=== PATIENT | male | born 1940 | race Caucasian/White ===

== ENCOUNTER → 2016-04-26 | Outpatient (CLI) | payer OTHER, MEDICARE ==
[2016-04-26 16:40] LABS: BASOPHILS # (AUTO) 0.03 10*3/UL; BASOPHILS % (AUTO) 0.3 % (0-1); EOSINOPHILS % (AUTO) 1.5 % (0-8); HEMATOCRIT 45.4 % (42.0-52.0); IMM GRAN % (AUTO) 0.3 % (0-5); IMM GRAN# (AUTO) 0.03 10*3/UL; LYMPHOCYTES # (AUTO) 4.75 10*3/uL; LYMPHOCYTES % (AUTO) 45.2 % (10-50); MEAN CORPUSCULAR HEMOGLOBIN 31.2 PG (27-31); MEAN PLATELET VOLUME 10.7 FL (7.4-12.2); MONOCYTES # (AUTO) 1.03 10*3/UL (0.3-0.8); MONOCYTES % (AUTO) 9.8 % (5-15); NEUTROPHILS # (AUTO) 4.51 10*3/UL; NEUTROPHILS % (AUTO) 42.9 % (50-80); RDW COEFFICIENT OF VARIATION 14.9 % (11.5-14.5); RED BLOOD COUNT 4.81 10^6/uL (4.70-6.10); WHITE BLOOD COUNT 10.51 10^3/uL (4.8-10.8)
[2016-04-26 16:42] LABS: PLATELET MORPHOLOGY COMMENT NORMAL MORPHOLOGY (NORM)
[2016-04-26 16:44] LABS: LDL CHOLESTEROL,CALCULATED 70.2 mg/dL
[2016-04-26 17:16] LABS: BILIRUBIN,TOTAL 0.9 mg/dL (0.3-1.2); BUN/CREATININE RATIO 23.63 (6-20); CALCIUM 9.9 mg/dL (8.7-10.7); CREATININE 1.1 mg/dL (0.70-1.50); POTASSIUM 5.6 meq/L (3.8-5.2); TOTAL PROTEIN 7.7 g/dL (6.1-8.0)
[2016-04-28 13:37] LABS: LAMOTRIGINE (LAMICTAL) 14.7 mcg/mL (2.5 - 15.0)
== END ==
LOC: LAB 09:07
PROVIDERS: ATTEND Internal Medicine
DX: G40.909 Epilepsy, unspecified, not intractable, without status epilepticus (principal); E03.9 Hypothyroidism, unspecified; I10 Essential (primary) hypertension; E78.5 Hyperlipidemia, unspecified; G47.34 Idiopathic sleep related nonobstructive alveolar hypoventilation; Z79.899 Other long term (current) drug therapy
CPT/HCPCS: 80053; 80061; 80175; 80177; 84443; 85025

== ENCOUNTER → 2016-05-17 | Outpatient (CLI) | payer OTHER, MEDICARE ==
--- NOTE | 2016-05-17 16:27 | EKG ---
[address] [address] Measurements Intervals [place] Rate: 61 P: -66 GA: 184 QRS: 78 QRSD: 125 T: 7 QT: 403 QTc: 407 Interpretive Statements ECTOPIC ATRIAL RHYTHM POSSIBLE INFERIOR MYOCARDIAL INFARCTION, OLD INTRAVENTRICULAR CONDUCTION DELAY Compared to ECG 11/20/2014 12:17:27 Ectopic atrial rhythm now present Sinus bradycardia no longer present Sinus arrhythmia no longer present Myocardial infarct finding still present Electronically Signed On 05-18-16 09:17:15 [facility] by Saúl Armas [id number]
[2016-05-17 17:18] LABS: BUN/CREATININE RATIO 15.83 (6-20); CALCIUM 9.4 mg/dL (8.7-10.7); CREATININE 1.2 mg/dL (0.70-1.50); POTASSIUM 5.2 meq/L (3.8-5.2)
== END ==
LOC: EKG 16:15
PROVIDERS: ATTEND Internal Medicine
DX: I10 Essential (primary) hypertension (principal); I45.89 Other specified conduction disorders; E87.5 Hyperkalemia; F17.210 Nicotine dependence, cigarettes, uncomplicated
CPT/HCPCS: 36415; 80048; 93005; 93010

== ENCOUNTER → 2016-05-26 | Outpatient (CLI) | payer OTHER, MEDICARE | LOC: MMPC 11:11 | PROVIDERS: ATTEND Internal Medicine | DX: R00.1 Bradycardia, unspecified (principal) | CPT/HCPCS: 99213; G0463 ==

== ENCOUNTER → 2016-06-04 | Outpatient (CLI) | payer OTHER, MEDICARE ==
--- NOTE | 2016-06-07 09:40 | HOLTER ---
[facility] Interpretive Statements This is a 48 hour Holter study done for "bradycardia." Unfortunately there were no diary "events" where the patient marked the tracings with any symptoms. There were no significant bradycardia episodes (defined as rates below 50 BPM) and the minimal heart rate was 56 BPM at 3:38 PM day 1. The predominate rhythm is normal sinus with frequent ventricular ectopy, and what the computer reads as "atrial fibrillation" when inspected is clearly NSR with ventricular bigeminy (which could produce a slow pulse). There were 23,354 possible ventricular ectopics of a total recorded number of nikvx=398,162. Of these, 1,370 were ventricular bigeminy episodes. There were no episodes of V-tach. There were 69 possible atrial ectopics with all but one being singlets. There were no pauses > 2 seconds. The QT analysis showed prolonged QTc maximally at 596 ms at 10:56 AM but normal average QTc of [address] analysis was within normal limits. IMPRESSION: Abnormal 48 hour Holter study with frequent ventricular bigeminy and 10 AM QTc prolongation suggesting possible medication effect. No diary correlation with any symptoms. Electronically Signed On 06-07-16 16:06:58 [facility] by Omero Rollins MD [id number]
== END ==
LOC: EKG 10:39
PROVIDERS: ATTEND Nurse Practitioner
DX: R00.1 Bradycardia, unspecified (principal); I10 Essential (primary) hypertension; F17.210 Nicotine dependence, cigarettes, uncomplicated
CPT/HCPCS: 93225; 93226; 93227

== ENCOUNTER → 2016-06-14 | Outpatient (CLI) | payer OTHER, MEDICARE ==
[2016-06-14 14:53] LABS: BUN/CREATININE RATIO 17.5 (6-20); CALCIUM 9.5 mg/dL (8.7-10.7); CREATININE 1.2 mg/dL (0.70-1.50); MAGNESIUM 2.1 mg/dL (1.6-2.4); POTASSIUM 4.6 meq/L (3.8-5.2)
== END ==
LOC: MOB LAB 14:10
PROVIDERS: ATTEND Specialist
DX: I10 Essential (primary) hypertension (principal); I73.9 Peripheral vascular disease, unspecified; R06.02 Shortness of breath; F17.210 Nicotine dependence, cigarettes, uncomplicated
CPT/HCPCS: 36415; 80048; 83735; G0463; 99204

== ENCOUNTER → 2016-07-06 | Outpatient (CLI) | payer OTHER, MEDICARE ==
--- NOTE | 2016-07-06 14:14 | EKG ---
[address] [place] [address] [place] [address] Measurements Intervals [place] Rate: 73 P: 0 MD: 186 QRS: 74 QRSD: 116 T: -57 QT: 383 QTc: 409 Interpretive Statements SINUS RHYTHM POSSIBLE INFERIOR MYOCARDIAL INFARCTION, OLD Compared to ECG 05/17/2016 16:30:05 Ectopic atrial rhythm no longer present Myocardial infarct finding still present Electronically Signed On 07-07-16 13:24:14 [facility] by Saúl Armas [id number]
== END ==
LOC: MOB LAB 13:55
PROVIDERS: ATTEND Specialist
DX: I49.9 Cardiac arrhythmia, unspecified (principal)
CPT/HCPCS: 93005; 93010

== ENCOUNTER → 2016-08-06 | Outpatient (CLI) | payer OTHER, MEDICARE | LOC: MMPC 11:11 | PROVIDERS: ATTEND Internal Medicine | DX: I10 Essential (primary) hypertension (principal); E03.9 Hypothyroidism, unspecified; G40.909 Epilepsy, unspecified, not intractable, without status epilepticus; E78.5 Hyperlipidemia, unspecified | CPT/HCPCS: 99213; G0463 ==

== ENCOUNTER → 2016-09-01 | Outpatient (CLI) | payer OTHER, MEDICARE | LOC: MMPC 10:00 | PROVIDERS: ATTEND Podiatrist Foot & Ankle Surgery | DX: M79.674 Pain in right toe(s) (principal); M79.675 Pain in left toe(s); L60.2 Onychogryphosis; B35.1 Tinea unguium; I73.9 Peripheral vascular disease, unspecified; F17.210 Nicotine dependence, cigarettes, uncomplicated | CPT/HCPCS: 11721 ×2; 99203; G0463 ==

== ENCOUNTER → 2016-10-05 | Outpatient (CLI) | payer OTHER, MEDICARE ==
--- NOTE | 2016-10-08 14:12 | HOLTER ---
[facility] Interpretive Statements father had NM at age 42 patient had silent NM 60 year pack day smoker This is a 24 hour Holter study done for "PVC." There were no diary events recorded other than the initial hookup teaching button push. There were a total of 95,672 beats recorded with no significant tachycardias, the maximum rate being 98 BPM. There were no pauses > 2 seconds and no significant bradycardias with the slowest rate being 47 BPM at 1:27 AM. There were 4400 ventricular ectopics with 4316 being singlets, 41 couplets, 44 bigeminy, 77 qualified as trigeminy, 7 R on T events, and zero V-tach episodes. There were 16 possible atrial ectopics, 10 being singlets and 3 pairs. QTc average was 393ms but at 7:46 AM the maximum QTc was 537. ST analysis was within normal limits. IMPRESSION: 24 hour Holter study with apparently asymptomatic ventricular ectopy and some possibility of prolonged QT especially in the AM hours raising a question of medication association. Electronically Signed On 10-11-16 07:41:52 [facility] by Omero Rollins MD [id number]
== END ==
LOC: EKG 14:07
PROVIDERS: ATTEND Specialist
DX: I49.3 Ventricular premature depolarization (principal); R06.2 Wheezing; I10 Essential (primary) hypertension; E78.5 Hyperlipidemia, unspecified; J44.9 Chronic obstructive pulmonary disease, unspecified; I25.10 Atherosclerotic heart disease of native coronary artery without angina pectoris; I25.2 Old myocardial infarction; F17.200 Nicotine dependence, unspecified, uncomplicated
CPT/HCPCS: 93225; 93226; 93227; 99214

== ENCOUNTER → 2016-10-07 | Outpatient (CLI) | payer OTHER, MEDICARE | LOC: MMPC 10:00 | PROVIDERS: ATTEND Podiatrist Foot & Ankle Surgery | DX: L60.3 Nail dystrophy (principal) | CPT/HCPCS: 99212 ==

== ENCOUNTER → 2016-11-02 | Outpatient (CLI) | payer OTHER, MEDICARE | LOC: MMPC 10:00 | PROVIDERS: ATTEND Specialist | DX: I25.10 Atherosclerotic heart disease of native coronary artery without angina pectoris (principal); I25.2 Old myocardial infarction; I49.3 Ventricular premature depolarization; I73.9 Peripheral vascular disease, unspecified; J44.9 Chronic obstructive pulmonary disease, unspecified; E78.5 Hyperlipidemia, unspecified; I10 Essential (primary) hypertension; E03.9 Hypothyroidism, unspecified; F17.210 Nicotine dependence, cigarettes, uncomplicated | CPT/HCPCS: 99213; G0463 ==